=== PATIENT | female | born 1960 | race Caucasian/White ===

== ENCOUNTER 2016-07-06 15:19 | Emergency (ER) | payer BC ==
[~2016-07-06] VITALS: Wt 68.5 kg
[~2016-07-06 15:19] MED LIST: ACET325T33 PO; DENIES MEDS
[2016-07-06 15:42] LABS: URINE BLOOD (Dip) POC 1+ (NEGATIVE)
[2016-07-06] MEDS ORDERED: FLUC150T17 PO (15:58)
[2016-07-06] MEDS ORDERED: NITR-58 PO (15:58)
--- NOTE | 2016-07-06 16:04 | ERD ---
ER Documentation Chief Complaint Date/Time DATE: 07/06/16 TIME: 16:02 Chief Complaint DYSURIA [id number] HPI 13-year-old female emergency department with painful urination, urgency for the past 3 days. She states that she was diagnosed with a yeast infection yesterday she denies any fevers, chills, nausea, vomiting. She states that there was associated hematuria one time yesterday. She denies abdominal pain or flank pain. ROS All systems reviewed and are negative except as per history of present illness. Medications Home Meds Active Scripts Fluconazole* (Diflucan*) 150 Mg Tablet, 150 MG PO ONCE, #2 TAB Prov:DAI CHAVEZ PA-C 07/06/16 Nitrofurantoin Monohyd Macrocr* (Macrobid*) 100 Mg Capsr, 100 MG PO BID for 7 Days, CAP Prov:DAI CHAVEZ PA-C 07/06/16 Acetaminophen* (Tylenol*) 325 Mg Tablet, 1 TAB PO Q6 Y for PAIN AND OR ELEVATED TEMP, #20 TAB Prov:DANELLE ADAME PA-C 08/14/15 Reported Medications [Denies Meds] No Conflict Check 08/10/10 Allergies Allergies: Coded Allergies: Penicillins (Verified Allergy, Mild, RASH, 08/14/15) PMhx/Soc History of Surgery: Yes (URETHRAL REPAIR) Anesthesia Reaction: No Hx Neurological Disorder: No Hx Respiratory Disorders: No Hx Cardiac Disorders: No Hx Psychiatric Problems: No Hx Miscellaneous Medical Probl: No Hx Alcohol Use: Yes (occasionally) Hx Substance Use: No Hx Tobacco Use: No Smoking Status: Never smoker Physical Exam Vitals Vital Signs Date Time Temp Pulse Resp B/P Pulse Ox O2 Delivery O2 Flow Rate FiO2 07/06/16 15:27 98.1 80 20 130/62 98 Physical Exam General: Well-developed, well-nourished. The patient appears in no acute distress. HEENT: Head is normocephalic, atraumatic. No scleral icterus. Neck: Supple. Nontender. Lungs: Clear to auscultation. Normal air movement. Heart: Regular rate and rhythm. S1 and S2 are normal. No murmurs, gallops, or rubs. Abdomen: Nondistended. Nontender, no CVA tenderness Extremities: No clubbing or cyanosis. Moving extremities x 4. No weakness. Neurologic: Alert and oriented 3. No focal deficits. Normal speech and gait. Skin: Normal turgor. No rash or lesions. Results 24 hrs Laboratory Tests Test 07/06/16 15:43 Bedside Urine pH (LAB) 7.0 Bedside Urine Protein (LAB) Negative Bedside Urine Glucose (UA) 0.1% Bedside Urine Ketones (LAB) Negative Bedside Urine Blood 1+ Bedside Urine Nitrite (LAB) Positive Bedside Urine Leukocyte Esterase (L 1+ Procedures/MDM 48-year-old female presents with a urinary tract infection, with history of yeast vaginitis. Symptoms appear to be an acute cystitis, she does not show any clinical signs or symptoms of pyelonephritis, PID, cervicitis and acute abdomen including appendicitis. Patient will be given Diflucan, since she will be started on antibiotics for a yeast infection. Departure Diagnosis: Primary Impression: UTI (urinary tract infection) Condition: Good Patient Instructions: Understanding Urinary Tract Infections (UTIs), Vaginal Infection: Yeast (Candidiasis) Additional Instructions: Llame al doctor MAANA y sally shikha LAURYN PARA DENTRO DE 1-2 PHAM.Dgale a la secretaria que nosotros le instruimos hacer esta lauryn.Avise o llame si pérez condicin se empeora antes de la lauryn. Regresa aqui si peor o no mejor. DAI CHAVEZ PA-C Jul 06, 2016 16:04
== END 2016-07-06 16:39 | disposition home or self-care (01) ==
LOC: FTE 15:19 → EEVIPCON 15:19 → FTE 16:39
DX: N39.0 Urinary tract infection, site not specified (principal)
CPT/HCPCS: 81003; 87086; 87591; 99284

== ENCOUNTER 2017-03-19 21:55 | Emergency (ER) | END 2017-03-20 01:05 | disposition home or self-care (01) ==